=== PATIENT | male | born 1985 | race Two or more races ===

== ENCOUNTER 2018-02-03 13:25 | Emergency (ER) | payer OTHER ==
--- NOTE | 2018-02-03 13:49 | ED Physician Documentation ---
PD HPI UPPER EXT INJURY - Stated complaint Stated Complaint: ARM INJURY - Chief complaint Chief Complaint: Ext Problem - History obtained from History obtained from: Patient - History of Present Illness Location: Right (Right-handed gentleman who is up-to-date on tetanus was trying to lift a lawnmower and it levered down pinching his forearm between a root and the lawnmower with gradual onset pain and swelling there. This happened today. No other injuries.) Review of Systems Constitutional: reports: Reviewed and negative Throat: reports: Reviewed and negative Cardiac: reports: Reviewed and negative PD PAST MEDICAL HISTORY - Past Medical History Past Medical History: No - Past Surgical History Past Surgical History: Yes - Present Medications Home Medications: Ambulatory Orders Medication Instructions Recorded Confirmed Ibuprofen [Motrin] 800 mg PO Q8H PRN #30 tablet 02/03/18 - Allergies Allergies/Adverse Reactions: Allergies Allergy/AdvReac Type Severity Reaction Status Date / Time No Known Drug Allergies Allergy Verified 02/03/18 13:36 - Social History Does the pt smoke?: Yes Smoking Status: Current every day smoker Does the pt drink ETOH?: Yes Does the pt have substance abuse?: No - POLST Patient has POLST: No PD ED PE NORMAL - Vitals Vital signs reviewed: Yes - General General: Alert and oriented X 3, No acute distress - Extremities Extremities: Other (There is an area of swelling and tenderness under the distal forearm, looks like a broken vein with subq bleeding. Reasonable ROM at the wrist. NVI in the hand.) - Neuro Neuro: Alert and oriented X 3, Normal speech Results - Vitals Vitals: Vital Signs - 24 hr 02/03/18 13:26 Temperature 36.8 C Heart Rate 64 Respiratory 16 Rate Blood Pressure 121/93 H O2 Saturation 96 Oxygen O2 Source Room air - Rads (name of study) Wrist XR Radiology: EMP read contemporaneously (Chronic findings without acute disease, note made that he does seem to have a metallic foreign body on one view.) PD MEDICAL DECISION MAKING - ED course ED course: I offered to anesthetize the area and try to remove the metallic foreign body, after discussion he declines. It is a fairly small metallic foreign body and probably should not bother him in the long run, that said he is given the name and number for the orthopedic clinic if he wants to have it out at a subsequent time. Departure - Departure Disposition: Home, Self Care Clinical Impression: Metal foreign body in upper extremity Qualifiers: Encounter type: initial encounter Laterality: right Qualified Code(s): S40.851A - Superficial foreign body of right upper arm, initial encounter Condition: Good Record reviewed to determine appropriate education?: Yes Instructions: ED Foreign Body Soft Tissue Follow-Up: [facility] [Provider Group] (as needed if it bothers you) Prescriptions: Ibuprofen [Motrin] 800 mg PO Q8H PRN #30 tablet PRN Reason: PAIN &/OR FEVER Comments: Your blood pressure was elevated today on check into the emergency department. This does not mean that you have hypertension, it is a common phenomenon to come to the emergency department and have elevated blood pressure. I recommend that you see your primary care physician within the week to have it rechecked when you are feeling better. Forms: Activity restrictions Discharge Date/Time: 02/03/18 14:11
[2018-02-03 13:53] VITALS: BP 121/93
[2018-02-03] MEDS ORDERED: IBUPROFEN 800 MG TABLET PO STA (13:58)
--- NOTE | 2018-02-03 14:12 | XRAY Report ---
EXAM: RIGHT WRIST RADIOGRAPHY EXAM DATE: 02/03/2018 01:56 PM. 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 COMPARISON: None. TECHNIQUE: 4 views. FINDINGS: Bones: Old navicular fracture with smooth margins. No definite acute fracture. Increased density of p roximal navicular fragment suggests avascular necrosis. Joints: Joint space narrowing in the proximal carpal row. Otherwise unremarkable. Soft Tissues: Unremarkable. IMPRESSION: Chronic findings. No definite acute disease. [facility] Referring Provider Line: [phone] SITE ID: [id number]
== END 2018-02-03 14:11 | disposition home or self-care (01) ==
LOC: ED 13:25
DX: S40.851A Superficial foreign body of right upper arm, initial encounter (principal); W23.0XXA Caught, crushed, jammed, or pinched between moving objects, initial encounter; R03.0 Elevated blood-pressure reading, without diagnosis of hypertension
CPT/HCPCS: 99283

== ENCOUNTER 2018-02-03 19:22 | Emergency (ER) | payer OTHER, MEDICAID ==
[2018-02-03 19:36] VITALS: BP 119/75
--- NOTE | 2018-02-03 20:24 | XRAY Report ---
EXAM: RIGHT FOREARM RADIOGRAPHY EXAM DATE: 02/03/2018 08:02 PM. CLINICAL HISTORY: Arm pain COMPARISON: None. TECHNIQUE: 3 views. FINDINGS: Bones: No fracture or focal bony lesion. Joints: No evidence of dislocation. Soft Tissues: There is a linear metallic radiopacity projecting over the dorsal lateral soft tissues. IMPRESSION: 1. No fracture or dislocation. 2. There is a linear metallic radiopacity projecting over the dorsal lateral soft tissues of the fore arm. This is suspicious for foreign body. [facility] Referring Provider Line: [phone] SITE ID: [id number]
[2018-02-03] MEDS ORDERED: BUFFERED LIDOCAINE 10 ML SYRINGE SUBQ STA (20:25)
--- NOTE | 2018-02-03 20:29 | ED Physician Documentation ---
PD HPI UPPER EXT INJURY - Stated complaint Stated Complaint: RT ARM PX - Chief complaint Chief Complaint: Trauma Ext - History obtained from History obtained from: Patient - History of Present Illness Location: Other (Seen earlier today, he has a foreign body in the dorsal wrist. He did not want it taken out at that time but it is persistently bothering him and he change his mind and would like taken out.) Review of Systems Constitutional: reports: Reviewed and negative Cardiac: reports: Reviewed and negative Respiratory: reports: Reviewed and negative PD PAST MEDICAL HISTORY - Past Surgical History Past Surgical History: Yes - Present Medications Home Medications: Ambulatory Orders Medication Instructions Recorded Confirmed Ibuprofen [Motrin] 800 mg PO Q8H PRN #30 tablet 02/03/18 - Allergies Allergies/Adverse Reactions: Allergies Allergy/AdvReac Type Severity Reaction Status Date / Time No Known Drug Allergies Allergy Verified 02/03/18 13:36 - Social History Does the pt smoke?: Yes Smoking Status: Current every day smoker Does the pt drink ETOH?: Yes Does the pt have substance abuse?: No - POLST Patient has POLST: No PD ED PE NORMAL - Vitals Vital signs reviewed: Yes - General General: Alert and oriented X 3, No acute distress - Extremities Extremities: Other (Reexamination of the dorsal right forearm demonstrates an area of swelling, he is actually able to manipulate the wrist such that the metallic foreign body tents up the skin and this was marked during exam.) - Neuro Neuro: Alert and oriented X 3, Normal speech Results - Vitals Vitals: Vital Signs - 24 hr 02/03/18 19:33 Temperature 36.6 C Heart Rate 74 Respiratory 16 Rate Blood Pressure 119/75 O2 Saturation 99 Oxygen O2 Source Room air - Rads (name of study) 2v R forearm Radiology: EMP read contemporaneously (Linear metallic foreign body in the soft tissues) Procedures - FB removal FB location: Subcutaneous FB removal preparation: Local anesthesia-specify (buffered lidocaine) Removal method: Other (The area was prepped with iodine and sterilely draped, and using a 15 blade a small incision was made and the metallic foreign body was easily identified and removed in its entirety, the laceration was closed with 2, 5/0 nylon stitches.) FB removal aftercare: No complications, Patient tolerated well, Removed successfully Departure - Departure Disposition: 01 Home, Self Care Clinical Impression: Metal foreign body in upper extremity Qualifiers: Encounter type: initial encounter Laterality: right Qualified Code(s): S40.851A - Superficial foreign body of right upper arm, initial encounter Condition: Good Record reviewed to determine appropriate education?: Yes Instructions: ED Foreign Body Soft Tissue Removed Comments: Come back for any signs of infection which would include: Redness, swelling, drainage, increased pain, or fevers. Follow-up with your physician in about 7 days for suture removal.
== END 2018-02-03 21:00 | disposition home or self-care (01) ==
LOC: ED 19:22
DX: S50.851A Superficial foreign body of right forearm, initial encounter (principal); W23.0XXA Caught, crushed, jammed, or pinched between moving objects, initial encounter; R03.0 Elevated blood-pressure reading, without diagnosis of hypertension; F17.200 Nicotine dependence, unspecified, uncomplicated
CPT/HCPCS: 10120; 73090; 73110; 99283; A9270

== ENCOUNTER 2019-02-28 10:10 | Emergency (ER) | payer SELFPAY ==
[2019-02-28 10:23] VITALS: BP 138/70
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
--- NOTE | 2019-02-28 11:50 | XRAY Report ---
Reason: FOOSH with right thumb MCP joint pain Procedure Date: 02/28/2019 Accession Number: [id number] / [id number] Procedure: XR - Hand 3 View RT CPT Code: FULL RESULT: EXAM: RIGHT HAND RADIOGRAPHY EXAM DATE: 02/28/2019 11:39 AM. CLINICAL HISTORY: FOOSH with right thumb MCP joint pain. COMPARISON: WRIST 4 VIEW RT 02/03/2018 1:42 PM. TECHNIQUE: 3 views. FINDINGS: Bones: There is cortical step-off consistent with fracture at the right scaphoid waist, although similar findings were suggested on the prior radiographs as well. No other fracture or focal bone lesion. Joints: Normal. No subluxations. Soft Tissues: Normal. No soft tissue swelling. IMPRESSION: Evidence of right scaphoid waist fracture, although similar findings were seen in 2018. CT could be used to further assess for an acute component or evidence of chronic nonunion. [facility]
--- NOTE | 2019-02-28 13:38 | CT Report ---
Reason: right wrist ? non-union scaphoid Procedure Date: 02/28/2019 Accession Number: [id number] / [id number] Procedure: CT - UPPER EXTREMITY WO - RT CPT Code: FULL RESULT: EXAM: RIGHT WRIST CT WITHOUT CONTRAST EXAM DATE: 02/28/2019 01:23 PM. CLINICAL HISTORY: Right wrist question non-union scaphoid. COMPARISON: HAND 3 VIEW RT 02/28/2019 11:33 AM. TECHNIQUE: Thin-section axial images were acquired of the wrist without contrast. Post-processing: Coronal and sagittal reformats. Other: None. In accordance with CT protocol optimization, one or more of the following dose reduction techniques were utilized for this exam: automated exposure control, adjustment of mA and/or KV based on patient size, or use of iterative reconstructive technique. FINDINGS: Bones: There is a nonunited transverse fracture of the waist of the scaphoid. The fracture margins appear sclerotic, consistent with nonunion. There are no other visible fractures. No avascular necrosis of the proximal pole of the scaphoid. Focal bony overgrowth at the margins of the scaphoid and the lunate, suggestive of prior trauma to the scapholunate ligament. The scapholunate interval appears normal. Joints: Normal. No large elbow effusion. No calcified loose bodies. Musculature: Normal. No fatty atrophy. Other: None. IMPRESSION: 1. Nonunited fracture of the scaphoid. 2. Possible prior trauma to the scapholunate ligament. [facility]
== END 2019-02-28 14:17 | disposition home or self-care (01) ==
LOC: ED 10:10
DX: S02.5XXA Fracture of tooth (traumatic), initial encounter for closed fracture (principal); S01.512A Laceration without foreign body of oral cavity, initial encounter; S80.211A Abrasion, right knee, initial encounter; S30.811A Abrasion of abdominal wall, initial encounter; S70.212A Abrasion, left hip, initial encounter; S60.512A Abrasion of left hand, initial encounter; S60.221A Contusion of right hand, initial encounter; S05.12XA Contusion of eyeball and orbital tissues, left eye, initial encounter; S00.531A Contusion of lip, initial encounter; S80.02XA Contusion of left knee, initial encounter; Y04.2XXA Assault by strike against or bumped into by another person, initial encounter; Y92.039 Unspecified place in apartment as the place of occurrence of the external cause; M79.645 Pain in left finger(s); S62.001K Unspecified fracture of navicular [scaphoid] bone of right wrist, subsequent encounter for fracture with nonunion; F17.200 Nicotine dependence, unspecified, uncomplicated
CPT/HCPCS: 29125; 99283

== ENCOUNTER 2019-10-08 23:12 | Outpatient (CLI) | payer SELFPAY | END 2019-10-08 23:13 | disposition EMS.NT | LOC: EMS 23:12 | PROVIDERS: ATTEND Surgery | DX: R10.9 Unspecified abdominal pain (principal) ==